=== PATIENT | male | born 1990 | race Caucasian/White ===

== ENCOUNTER → 2016-05-29 | Outpatient (CLI) | payer OTHER ==
[~2016-05-29] VITALS: Ht 180.3 cm; Wt 91.1 kg
[~2016-05-29] MED LIST: BUSP10TA PO; DIAZ5 PO; IBUP-238 PO; PANT40TA3 PO; PAXI10TA2 PO; PROPOFOL 200 MG/20 ML AMP IV ONE; RANI75TA8 PO; Z.0.NO CURRENT MEDS
[2016-05-29 09:29] VITALS: BP 118/68; PULSE 55; RESP 22; TEMP 98; O2SAT 98
--- NOTE | 2016-05-29 10:35 | PD.PROCEDR ---
GI Procedure REFERRING PHYSICIAN Dr. Palmer PROCEDURE PERFORMED EGD with biopsy INDICATION FOR PROCEDURE Reflux PROCEDURE: The procedure, risks and benefits were discussed with Mr. Nova and informed consent was obtained. Anesthesia sedated him with Diprivan. He was placed in the left lateral decubitus position. EGD: The Pentax videoscope was introduced through the oropharynx and advanced to the second portion of the duodenum under direct visualization. Retroflexion was performed in the stomach. FINDINGS: The esophagus there were distal esophageal erythemic streaks consistent with reflux esophagitis this would be a grade B or C biopsies were taken for further evaluation The stomach there was a 3-4 cm hiatal hernia there was patchy erythema in the antrum no ulcerations or erosions biopsies were taken for further evaluation the rest of the gastric mucosa was normal The duodenum this was normal ESTIMATED BLOOD LOSS: None SPECIMENS REMOVED: Esophageal and gastric COMPLICATIONS: None IMPRESSION: Reflux esophagitis Hiatal hernia Gastritis PLAN: Await biopsy Continue with Protonix and Zantac Recommend gastric emptying scan Consider referral for hernia repair if symptoms persist Follow up in clinic after emptying scan Franklyn Seaman MD May 29, 2016 10:35
[2016-05-29 10:37] VITALS: TEMP 98.3
[2016-05-29 10:57] VITALS: BP 103/65; PULSE 69; RESP 16; O2SAT 99
== END ==
LOC: HEND 08:41
PROVIDERS: ATTEND Internal Medicine Gastroenterology
DX: K21.0 Gastro-esophageal reflux disease with esophagitis (principal); K29.50 Unspecified chronic gastritis without bleeding; K44.9 Diaphragmatic hernia without obstruction or gangrene
CPT/HCPCS: 88305; 88312